=== PATIENT | female | born 1935 | race Caucasian/White ===

== ENCOUNTER 2016-10-21 12:18 | Inpatient (IN) | payer MEDICARE, BC ==
[~2016-10-21] VITALS: Ht 157.5 cm; Wt 80.8 kg
--- NOTE | ~2016-10-21 | OR ---
ADMIT: 10/21/2016 RM/LOC: 629 [facility] MR#: [id number] [address] [address] HANS PARKER [address] [place] [address] Operative/Delivery Room Report SEX: F AGE: 81 : 1935 SURGERY DATE: 10/23/2016 SURGEON: Abhay Hart MD PRE-PROCEDURE DIAGNOSIS: Small bowel obstruction. POSTPROCEDURE DIAGNOSIS: Small bowel obstruction. PROCEDURE: Exploratory laparotomy with extensive lysis of adhesion. INDICATIONS: The patient is an 81-year-old with signs, symptoms, and radiographic evidence consistent with a small-bowel obstruction. She has failed conservative management. She presents for exploratory laparotomy. FINDINGS: The patient was taken to the operating room. General endotracheal anesthesia was induced. The patient's abdomen was prepped and draped in normal sterile fashion. The case was begun by making a vertical midline skin incision using a #10 blade. Dissection was carried down through subcutaneous fat, fascia, previously placed lower abdominal wall fascia and peritoneum using electrocautery. This dissection was somewhat tedious as there were very dense small bowel adhesions to the undersurface of the anterior abdominal wall right where the previously placed mesh had been. This was extremely adherent and again a very tedious and difficult dissection. We were able to carry this out without creating any enterotomies at all. We continued this dissection and all bowel loops from the undersurface of the anterior abdominal wall as far as other adhesions in the intraabdominal cavity, there were not many, but there were small bowel adhesions into the lower pelvis that were freed up using Metzenbaum scissor dissection. We continued all of our dissection dividing the small bowel loop adhesions to separate all of our small bowel all the way from the ligament of Treitz to the ileocecal valve. There were 2 or 3 small serotomies that I reinforced with interrupted 3-0 silk seromuscular sutures. I irrigated the intra-abdominal space copiously with warm saline and again, there were no further small bowel adhesions or small bowel pathology noted at this point. We returned all bowel loops to their normal anatomic position. Placed the patient's omentum up over the small bowel loops to cover the undersurface of the anterior abdominal wall. Checked the NG tube for good position, closed the fascia with running #1 looped PDS suture and the skin was closed with interrupted skin catherine. The wound was cleaned, dried, and dressed. The patient tolerated the procedure without difficulty, transferred to recovery room in good condition. Abhay Hart MD/ adina JOB #: [id number] CC: Nandini Ley, Attending Physician Nandini Ley, Family Physician
[~2016-10-21 12:18] MED LIST: CALTRATE-600 D600 MG PO; CARDIZEM CD300 MG PO; CARDIZEM120 MG PO; COUMADIN2.5 MG PO; COUMADIN5 MG PO; CYANOCOBAL1000 MCG/1 IM; DELTASONE DPS10 MG PO; DUONEB DPS3 ML IH; GLUCOSAMINE/CHO1 TAB PO; HYTRIN2 MG PO; HYZAAR-100/251 TAB PO; ICAPS TABLET1 EACH PO; LASIX DPS40 MG PO; MIRALAX PACKET17 GM PO; MONTELUKAST SOD10 MG PO; MUCINEX600 MG PO; MUCOMYST 20% DP30 ML IH; NEURONTIN DPS300 MG PO; OCEAN37.5 ML NS; SPIRIVA18 MCG IH; TYLENOL-DPS650 MG PR; ZYRTEC DPS10 MG PO
--- NOTE | 2016-10-22 08:46 | ER ---
ADMIT: 10/21/2016 RM/LOC: 629 [facility] MR#: [id number] [address] [address] [address]ANS P[address]ER [address] [place] [address] Emergency Room Report SEX: F AGE: 81 : 1935 DATE: 10/21/2016 This 81-year-old female comes into the Emergency Department with 2 or 3 days of vomiting and crampy abdominal pain. She said it started a couple of days ago, it slowly intensified. She had one large emesis this morning with resolution of her pain, however, she felt she should be evaluated. Subsequently came to the Emergency Department. Here she denies fever or chills, does have diffuse abdominal pain described as "as if someone kneading her abdomen." PAST MEDICAL HISTORY: Significant for total hysterectomy, left mastectomy, atrial fibrillation, COPD, increased cholesterol. SOCIAL HISTORY: She does drink alcohol daily. PHYSICAL EXAMINATION: GENERAL: Reveals an elderly female in no acute distress. HEENT: Normocephalic. LUNGS: Clear to auscultation. CARDIOVASCULAR: Rapid. Irregular rate, irregular rhythm. LUNGS: Clear to auscultation. ABDOMEN: There is diffuse tenderness throughout with guarding. No rebound. Hyperactive bowel tones. EXTREMITIES: Unremarkable. LABORATORY DATA: CBC was within normal limits. Electrolytes, sodium 133. CT scan of her abdomen revealed small bowel obstruction. INR was 1.18. The patient is being admitted with SBO. Dr. Hart will be consulted per request of Dr. Ley. Dionicio Huitron MD/ adina JOB #: [id number] CC: Nandini Lye MD, Attending Physician Nandini Ley MD, Family Physician
--- NOTE | 2016-10-24 08:05 | HP ---
ADMIT: 10/21/2016 RM/LOC: 629 [facility] MR#: [id number] [address] [address] HANS P[address]ER [address] [place] [address] History and Physical SEX: F AGE: 81 : 1935 DATE OF SERVICE: REASON FOR ADMISSION: Nausea, vomiting, abdominal distention and had a fairly sudden onset yesterday at 0300 hours in the morning. She has had a known history of a colon resection for diverticular disease dating back to 2001. History of severe recurrent diverticulitis prior to that time. She has been doing relatively well and not having any abdominal complaints prior to this occurring yesterday. She has a known history of chronic atrial fibrillation, hypertension, breast cancer, status post mastectomy, chronic anticoagulation, COPD, asthmatic bronchitis, degenerative arthritis, osteoarthritis, B12 deficiency, neuropathy, status post hysterectomy, history of colon polyps, and history of incisional hernia repair. SOCIAL HISTORY: She lives alone independently, has a supporting family. No tobacco or alcohol. She has remote tobacco. FAMILY HISTORY: Noncontributory. REVIEW OF SYSTEMS: I have seen her in the clinic in approximately 7 days ago for an upper respiratory tract infection, started on steroids and she had no abdominal complaints at that time. She has had no significant increasing shortness of breath, respiratory distress. No nausea, no vomiting prior to this time. No complaints of abdominal distention prior to this time. She has not had any peripheral edema. CURRENT MEDICATIONS: As follows. She is on: 1. Gabapentin 300 mg at bedtime. 2. Terazosin 2 mg two tablets at bedtime. 3. Singulair 10 mg at bedtime. 4. Diltiazem 420 mg before breakfast. 5. Lasix 40, 1-1/2 mg as directed. 6. Losartan/HCTZ 100/12.5 mg half tab daily. 7. Warfarin/Coumadin 5 mg as directed. 8. Spiriva 1 puff daily. 9. Zyrtec daily. 10.B12 shots monthly. 11.Calcium, glucosamine, multivitamin combination. PHYSICAL EXAMINATION: GENERAL: She is alert, articulate. HEENT: Within normal limits. NECK: Supple. No JVD. No carotid bruit. HEART: Irregularly irregular rhythm. LUNGS: Diminished but clear to auscultation. ABDOMEN: Rounded, distended, tender to touch. EXTREMITIES: No evidence of edema. ASSESSMENT: Admission of an elderly white female with evidence on CT of dilated small bowel with fecalization, free fluid within the abdominal pelvis, no free air, with possible small bowel obstruction with transition zone. ADMIT: 10/21/2016 RM/LOC: 629 [facility] MR#: [id number] [address] [address] [address] P[address]ER [address] [place] [address] History and Physical SEX: F AGE: 81 : 1935 History of chronic atrial fibrillation, and INR is subtherapeutic secondary to not taking it the last few days, hypertension, history of breast cancer status post mastectomy, chronic obstructive pulmonary disease, arthritis, bronchitis, degenerative arthritis, B12 deficiency, neuropathy, history of hysterectomy and colon resection. At this time, we will admit to [facility] for continued evaluation and care of abdominal distention, nausea, vomiting, small bowel obstruction with her history of diverticular disease, status post hysterectomy, she is at high risk. We at this time, will admit and continue IV fluids, hold all of her medications, will ask for surgical intervention and conservative measures. She is mildly hyponatremic and we will change her IV fluids to normal saline 125 mL an hour. Her last echocardiogram which was done in 2015 which showed bilateral atrial enlargement, mild aortic regurg, mild aortic stenosis, and severe pulmonary hypertension. Nandini Ley MD/ adina JOB #: [id number] CC: Nandini Ley, Attending Physician Nandini Ley, Family Physician
--- NOTE | 2016-10-26 21:44 | NUR ---
PT C/O OF INDIGESTION. RATES PAIN 3/10 IN MID STERNUM THAT RADIATES TO LEFT SIDE OF CHEST. PT REPORTS "FEELS BETTER WHEN I GET UP AND WALK." PT REPORTS "I FEEL LIKE THAT ENSURE I DRANK IS JUST SITTING THERE, I JUST HAVE A HUGE BURP TO GET UP." PT BURPING ALOT. DENIES PASSING FLATUS. MAALOX AND COLACE GIVEN. SEE EMAR.
--- NOTE | 2016-10-27 05:46 | NUR ---
0240- PT REPORTS SHE FEELS MISERABLE DUE TO "HEARTBURN" PT SAYS, "I HAVE A HIATAL HERNIA, AND IT IS JUST GIVING ME FITS HORRIBLY." PT HAS MIDSTERNUM PAIN THAT RADIATES TO HER THROAT, "THAT NAIR AND ACHES." VITAL SINGS- BP 140/66. P 76. O2 93% 2L, T 98.6. PT GETS UP WITH NURSES ASSIST, HAS 300 CC EMESIS. ZOFRAN GIVEN IN IV. PT BELCHING, NOT PASSING FLATUS. BOWEL SOUNDS ACTIVE X4. UPPER ABDOMEN FIRM. LOWER ABDOMEN SOFT. INCISION C/D/I. SMALL AMOUNT OF SEROSANGUINOUS DRAINAGE. DR. RANDHAWA NOTIFIED, NEW ORDERS RECEIVED.
[2016-10-31] MEDS ORDERED: ASMANEX220 MC1 IH (12:45)
[2016-10-31] MEDS ORDERED: DAILY MULTIPLE1 EAC1 PO (12:45)
[2016-10-31] MEDS ORDERED: PEPCID DPS20 MG PO (12:45)
[2016-10-31] MEDS ORDERED: NORCO 5-325 TA1 EACH PO (12:46)
--- NOTE | 2016-11-14 08:28 | DS ---
ADMIT: 10/21/2016 RM/LOC: 629 [facility] MR#: [id number] [address] [address] LIBBY PARKER [address] [place] [address] General Discharge Summary SEX: F AGE: 81 : 1935 ADMISSION DATE: 10/21/2016 DISCHARGE DATE: 10/30/2016 DISCHARGE DIAGNOSIS: Exploratory lap with extensive lysis of adhesions for small bowel obstruction. PAST MEDICAL HISTORY: Chronic atrial fibrillation on chronic anticoagulation, hypertension, history of breast cancer status post mastectomy, COPD with asthmatic bronchitis, degenerative arthritis, B12 deficiency, history of diverticular disease. HISTORY OF PRESENT ILLNESS: Well documented in her H and P. LABORATORY AND RADIOGRAPHIC ASSESSMENT: During this admission showed a hemoglobin of 13.8 on admission, hematocrit of 40.3. Her INR at the time of discharge was 1.77. Her urine showed no evidence of significant abnormalities. On admission, her potassium was 3.7, BUN and creatinine were 20 and 0.6. Liver function studies were normal. Creatinine of 0.6. CT of the abdomen showed findings suggestive of small bowel obstruction with transition in the lower abdomen and pelvis, small umbilical hernia, ascites, chronic diverticulosis without evidence of diverticulitis. Chest x-ray showed cardiomegaly with bilateral pleural effusions, increased interstitial markings, low-grade fluid overload, hyperventilation. Chest x-ray on 10/27 showed persistent small bilateral pleural effusions with improvement of variation of lung bases. HOSPITAL COURSE: Libby is a well-known patient of mine, who was admitted to [facility] with fairly sudden onset of abdominal pain and abdominal distention. She was seen and evaluated in the emergency room. CT scan showed a questionable small bowel obstruction with transitional zone. She has a known history of significant COPD and asthmatic bronchitis. History of chronic anticoagulation as she has a history of chronic atrial fibrillation, history of hypertension. She was admitted to [facility], was seen and evaluated by Surgery and subsequently underwent surgical intervention. She did well in the postop period and had no complications. Her pulmonary status is stable. She subsequently was discharged home. Please see her MAR for her discharge medications. She will have follow up with myself as well as with Dr. Hart in the outpatient setting. Nandini Ley MD/ adina JOB #: [id number] CC: Nanidni Ley MD, Attending Physician Nandini Ley MD, Family Physician
--- NOTE | 2016-11-21 08:57 | CO ---
ADMIT: 10/21/2016 RM/LOC: 629 [facility] MR#: [id number] [address] [address] [address] P[address]ER [address] [place] [address] Consultation SEX: F AGE: 81 : 1935 Corrected: 10/24/2016 1621 ajf DATE OF CONSULTATION: 10/22/2016 ATTENDING PHYSICIAN: Nandini Ley CONSULTING PHYSICIAN: Abhay Hart MD HISTORY OF PRESENT ILLNESS: The patient is a very pleasant 81-year-old patient of Dr. Ley, who has a past abdominal surgical history of an abdominal hysterectomy, sigmoid resection for recurrent sigmoid diverticulitis as well as some type of abdominal wall recurrent hernia repair with or without mesh somewhere after her colectomy. This was many years ago and she has been in her normal state of health until about 3-4 days ago at home where she developed fairly sudden mid evening crampy severe abdominal discomfort with nausea and vomiting. She has not had this pain recently. She has had no real change in her bowel function. She went at home for about 48 hours without eating anything. She could tolerate ice chips. She eventually called Dr. Ley's office and was sent to the emergency room where a radiograph was obtained, which appeared to show mid small bowel obstruction with fecalization of small bowel, a small amount of ascites. The patient was admitted for IV fluid resuscitation, as she was dehydrated, and observation, bowel rest. PAST SURGICAL HISTORY: Hysterectomy, hernia repair, and colectomy per HPI. PAST MEDICAL HISTORY: Atrial fibrillation, hypertension. She has had a mastectomy as well for breast cancer. She has COPD, arthritis, and B12 deficiency. SOCIAL HISTORY: She quit smoking many years ago, and drinks alcohol infrequently. FAMILY HISTORY: Otherwise noncontributory. ALLERGIES: SHE HAS NO KNOWN DRUG ALLERGIES. MEDICATIONS: Her medications include: 1. Gabapentin. 2. Singulair. 3. Terazosin. 4. Lasix. 5. Losartan. 6. Diltiazem. 7. Coumadin. 8. Spiriva. 9. Zyrtec. 10.Vitamin B12 shots. 11.Calcium. 12.Glucosamine. ADMIT: 10/21/2016 RM/LOC: 629 [facility] MR#: [id number] [address] [address] ELENA HANS Frank [address] [place] [address] Consultation SEX: F AGE: 81 : 1935 13.Multivitamin. REVIEW OF SYSTEMS: Denies headaches, chest pain, or shortness of breath. She admits to continued abdominal distention and discomfort. She did have a bowel movement today, although continues to have crampy abdominal pain and distention. PHYSICAL EXAMINATION: HEART: Irregularly irregular. LUNGS: Clear. ABDOMEN: Soft, distended, and tender to palpation with no guarding throughout. EXTREMITIES: She had no peripheral edema. NEURO: No focal neurologic deficits. ASSESSMENT AND PLAN: The patient is an 81-year-old female with signs, symptoms, and radiographic evidence consistent with a small bowel obstruction. She has tried conservative management, virtually on her own at home for about 48 hours, has now been in the hospital for about 24-36 hours with really no resolution of her symptoms with continued radiographic demonstration of a small bowel obstruction. I discussed with her the likely need for an open laparotomy, lysis of adhesions, possible bowel resection. We will get this on the schedule for tomorrow morning, October 23. If she happens to be much better tomorrow morning, we could certainly postpone this but suspect she will need surgical remedy of this bowel obstructive presentation. Abhay Hart MD/ adina JOB #: [id number] CC: Nandini Ley, Attending Physician Nandini Ley, Family Physician Corrected: 10/24/2016 1621 [id number]
== END 2016-10-30 11:40 | disposition home health service (06) | DRG 336 ==
LOC: ER 12:18 → 6PED 14:30
PROVIDERS: ADMIT Internal Medicine
PROC: 0DN80ZZ Release Small Intestine, Open Approach (ICD-10-PCS; principal; 2016-10-23)
DX: K56.5 Intestinal adhesions [bands] with obstruction (postinfection) (principal); R18.8 Other ascites; I27.2 Other secondary pulmonary hypertension; Z99.81 Dependence on supplemental oxygen; E87.1 Hypo-osmolality and hyponatremia; G62.9 Polyneuropathy, unspecified; E87.70 Fluid overload, unspecified; I48.2 Chronic atrial fibrillation; E53.8 Deficiency of other specified B group vitamins; I10 Essential (primary) hypertension; D64.9 Anemia, unspecified; J44.9 Chronic obstructive pulmonary disease, unspecified; K42.9 Umbilical hernia without obstruction or gangrene; E87.6 Hypokalemia; K57.90 Diverticulosis of intestine, part unspecified, without perforation or abscess without bleeding; E66.9 Obesity, unspecified; Z68.29 Body mass index [BMI] 29.0-29.9, adult; M19.90 Unspecified osteoarthritis, unspecified site; E86.0 Dehydration; Z90.12 Acquired absence of left breast and nipple; Z85.3 Personal history of malignant neoplasm of breast; Z87.891 Personal history of nicotine dependence; Z79.01 Long term (current) use of anticoagulants